=== PATIENT | male | born 1960 | race Caucasian/White ===

== ENCOUNTER 2018-03-10 12:11 | Inpatient (IN) | payer OTHER ==
[2018-03-10 12:51] LABS: ADD MAN DIFF? NO
[2018-03-10 12:53] LABS: WHITE BLOOD COUNT 8.3 10^3/ul (4.8-10.8)
[2018-03-10 12:53] LABS: BASOPHIL # 0.1 10^3/ul (0.0-0.1); BASOPHILS % 0.6 % (0.0-2.0); EOSINOPHILS # 0.1 10^3/ul (0.0-0.5); EOSINOPHILS % 0.6 % (0.0-7.0); HEMATOCRIT 49.1 % (42.0-52.0); HEMOGLOBIN 16.8 g/dl (14.0-18.0); LYMPHOCYTES # 1.6 10^3/ul (0.8-2.9); LYMPHOCYTES % 19.7 % (15.0-51.0); MEAN CORPUSCULAR HGB CONC 34.2 g/dl (32.0-37.0); MEAN CORPUSCULAR VOLUME 84.8 fl (82.0-101.0); MEAN PLATELET VOLUME 10.6 fl (7.4-10.4); MONOCYTE # 0.6 10^3/ul (0.3-0.9); MONOCYTES % 7.4 % (0.0-11.0); NEUTROPHIL # 5.9 10^3/ul (1.6-7.5); NEUTROPHILS % 71.3 % (39.0-77.0); PLATELET COUNT 238 10^3/UL (140-415); RED BLOOD COUNT 5.79 10^6/ul (4.70-6.10); RED CELL DISTRIBUTION WIDTH 12.7 % (11.5-14.5)
[2018-03-10 13:11] LABS: ALANINE AMINOTRANSFERASE 24 IU/L (13-69); ALBUMIN 4.9 g/dl (3.3-4.9); ALBUMIN/GLOBULIN RATIO 1.63; ALKALINE PHOSPHATASE 74 IU/L (42-121); ANION GAP 13 (5-13); ASPARTATE AMINO TRANSFERASE 25 IU/L (15-46); BILIRUBIN,INDIRECT 0.9 mg/dl (0-1.1); BILIRUBIN,TOTAL 0.9 mg/dl (0.2-1.3); BLOOD UREA NITROGEN 16 mg/dl (7-20); CALCIUM 9.9 mg/dl (8.4-10.2); CARBON DIOXIDE 22 mmol/L (21-31); CHLORIDE 107 mmol/L (97-110); CREATININE 1.23 mg/dl (0.61-1.24); Estimated GFR > 60 mL/min (>60); GLUCOSE 108 mg/dl (70-220); POTASSIUM 4.2 mmol/L (3.5-5.1); SODIUM 142 mmol/L (135-144); TOTAL PROTEIN 7.9 g/dl (6.1-8.1)
[2018-03-10 13:23] LABS: B-TYPE NATRIURETIC PEPTIDE 203 PG/ML (0-125); TROPONIN-I < 0.012 ng/ml (0.000-0.120)
[2018-03-10 13:38] LABS: INR 0.88; PT RATIO 0.9
[2018-03-10] MEDS: ASPIRIN 81 MG TAB PO (13:51)
[2018-03-10] MEDS: morphine 2 MG INJ IV (13:51)
[2018-03-10] MEDS: hydrALAzine 20 MG INJ IV (13:51)
[2018-03-10] MEDS ORDERED: ONDANSETRON 4 MG INJ IV (16:30)
[2018-03-10] MEDS ORDERED: ACETAMINOPHEN 325 MG TAB PO (16:30)
[2018-03-10] MEDS ORDERED: NACL 0.9% 3 ML SYG IV (17:00)
[2018-03-10] MEDS ORDERED: NITROGLYCERIN (SL) 0.4 MG TAB SL (17:00)
[2018-03-10] MEDS ORDERED: LABETALOL HCL 20MG INJ IV (17:00)
[2018-03-10 19:02] LABS: CREATINE KINASE 86 IU/L (23-200)
[2018-03-10 19:16] LABS: CK INDEX 1.2; CK-MB 0.99 ng/ml (0.0-2.4); TROPONIN-I < 0.012 ng/ml (0.000-0.120)
[2018-03-10] MEDS: FISH OIL 1,000 MG CAP PO (20:15)
[2018-03-10] MEDS: AMLODIPINE 5 MG TAB PO (20:15)
[2018-03-10] MEDS: ATORVASTATIN 10 MG TAB PO (20:15)
[2018-03-10] MEDS: BENAZEPRIL 40 MG TAB PO (21:00)
[2018-03-10] MEDS ORDERED: BENAZEPRIL 40 MG TAB PO (21:00)
[2018-03-10] MEDS ORDERED: HEPARIN 5,000 UNIT/0.5 ML VIAL (21:30)
[2018-03-10] MEDS: LORAZEPAM 1 MG TAB PO (21:37)
[2018-03-10] MEDS: HEPARIN 5,000 UNIT/1 ML VIAL SC (21:44)
[2018-03-10] MEDS: ONDANSETRON 4 MG INJ IV (21:48)
[2018-03-11 01:16] LABS: CREATINE KINASE 73 IU/L (23-200)
[2018-03-11 01:28] LABS: CK INDEX 1.2; CK-MB 0.88 ng/ml (0.0-2.4); TROPONIN-I < 0.012 ng/ml (0.000-0.120)
[2018-03-11] MEDS: ONDANSETRON 4 MG INJ IV (04:39)
[2018-03-11 05:28] LABS: ADD MAN DIFF? NO
[2018-03-11 05:29] LABS: BASOPHILS % 0.3 % (0.0-2.0); EOSINOPHILS # 0.1 10^3/ul (0.0-0.5); EOSINOPHILS % 1.1 % (0.0-7.0); HEMATOCRIT 49.4 % (42.0-52.0); HEMOGLOBIN 16.9 g/dl (14.0-18.0); LYMPHOCYTES # 2.1 10^3/ul (0.8-2.9); LYMPHOCYTES % 23.5 % (15.0-51.0); MEAN CORPUSCULAR HEMOGLOBIN 29.3 pg (29.0-33.0); MEAN CORPUSCULAR HGB CONC 34.2 g/dl (32.0-37.0); MEAN CORPUSCULAR VOLUME 85.8 fl (82.0-101.0); MEAN PLATELET VOLUME 10.5 fl (7.4-10.4); NEUTROPHIL # 5.6 10^3/ul (1.6-7.5); NEUTROPHILS % 63.9 % (39.0-77.0); PLATELET COUNT 262 10^3/UL (140-415); RED BLOOD COUNT 5.76 10^6/ul (4.70-6.10); RED CELL DISTRIBUTION WIDTH 13.2 % (11.5-14.5)
[2018-03-11 05:29] LABS: WHITE BLOOD COUNT 8.7 10^3/ul (4.8-10.8)
[2018-03-11] MEDS ORDERED: HEPARIN 5,000 UNIT/0.5 ML VIAL ×2 (05:49→13:57)
[2018-03-11 06:00] LABS: CREATINE KINASE 66 IU/L (23-200)
[2018-03-11 06:02] LABS: ALBUMIN/GLOBULIN RATIO 1.95; ANION GAP 12 (5-13); Estimated GFR > 60 mL/min (>60)
[2018-03-11 06:05] LABS: CHOL/HDL RATIO 5.3 RATIO; HDL CHOLESTEROL 42 mg/dl (30-78); LDL CHOLESTEROL,CALCULATED 147 mg/dl; TRIGLYCERIDES 180 mg/dl (0-149)
[2018-03-11 06:05] LABS: CHOLESTEROL 225 mg/dl (100-200)
[2018-03-11 06:10] LABS: CK INDEX 1.1
[2018-03-11 06:13] LABS: TROPONIN-I < 0.012 ng/ml (0.000-0.120)
[2018-03-11] MEDS: LEVOTHYROXINE 50 MCG TAB PO (06:21)
[2018-03-11 06:28] LABS: ALANINE AMINOTRANSFERASE 26 IU/L (13-69); ALBUMIN 4.7 g/dl (3.3-4.9); ALKALINE PHOSPHATASE 67 IU/L (42-121); ASPARTATE AMINO TRANSFERASE 21 IU/L (15-46); BLOOD UREA NITROGEN 19 mg/dl (7-20); CALCIUM 9.9 mg/dl (8.4-10.2); CARBON DIOXIDE 24 mmol/L (21-31); CHLORIDE 107 mmol/L (97-110); CREATININE 1.18 mg/dl (0.61-1.24); GLUCOSE 111 mg/dl (70-220); MAGNESIUM 2.1 mg/dl (1.7-2.5); POTASSIUM 4.2 mmol/L (3.5-5.1); SODIUM 143 mmol/L (135-144); TOTAL PROTEIN 7.1 g/dl (6.1-8.1)
[2018-03-11] MEDS: HEPARIN 5,000 UNIT/1 ML VIAL SC ×2 (06:29→14:12)
[2018-03-11 06:31] LABS: CK-MB 0.74 ng/ml (0.0-2.4)
[2018-03-11 07:38] LABS: FREE T4 (FREE THYROXINE) 0.88 ng/dl (0.64-1.79)
[2018-03-11] MEDS: BENAZEPRIL 40 MG TAB PO (08:13)
[2018-03-11] MEDS: ASPIRIN (EC) 81 MG TAB PO (08:14)
[2018-03-11] MEDS: AMLODIPINE 5 MG TAB PO (08:14)
[2018-03-11] MEDS: FISH OIL 1,000 MG CAP PO (08:14)
[2018-03-11] MEDS ORDERED: CLOPIDOGREL 75 MG TAB PO (09:00)
[2018-03-11] MEDS: ACETAMINOPHEN 325 MG TAB PO (11:16)
[2018-03-11] MEDS: REGADENOSON 0.4 MG/5 ML SYG (13:12)
== END 2018-03-11 17:15 | disposition home or self-care (01) | DRG 305 ==
LOC: E/R 12:11 → TEL 16:03
DX: I16.0 Hypertensive urgency (principal); I25.10 Atherosclerotic heart disease of native coronary artery without angina pectoris; E03.9 Hypothyroidism, unspecified; Z79.82 Long term (current) use of aspirin; E78.5 Hyperlipidemia, unspecified; F41.9 Anxiety disorder, unspecified; G47.00 Insomnia, unspecified; R07.9 Chest pain, unspecified; Z87.891 Personal history of nicotine dependence; Z91.19 Patient's noncompliance with other medical treatment and regimen
CPT/HCPCS: 36415; 70450; 71045; 78452; 80053; 80061; 82550; 82553; 83735; 83880; 84439; 84443; 84484; 85025; 85610; 93005; 93017; 93306; 96374; 99285-25

== ENCOUNTER 2018-04-05 14:25 | Observation (INO) | payer OTHER ==
[2018-04-05] MEDS: ASPIRIN 81 MG TAB PO (15:27)
[2018-04-05] MEDS: NITROGLYCERIN (SL) 0.4 MG TAB SL (15:27)
[2018-04-05] MEDS: NITROGLYCERIN 2% 1 GM OINT PKT TD (15:28)
[2018-04-05 15:38] LABS: ADD MAN DIFF? NO
[2018-04-05] MEDS ORDERED: ATROPINE 1 MG/10 ML SYRINGE (15:40)
[2018-04-05 15:42] LABS: BASOPHILS % 0.4 % (0.0-2.0); EOSINOPHILS % 0.2 % (0.0-7.0); HEMATOCRIT 48.4 % (42.0-52.0); HEMOGLOBIN 16.5 g/dl (14.0-18.0); LYMPHOCYTES # 1.5 10^3/ul (0.8-2.9); LYMPHOCYTES % 17.9 % (15.0-51.0); MEAN CORPUSCULAR HEMOGLOBIN 28.9 pg (29.0-33.0); MEAN CORPUSCULAR HGB CONC 34.1 g/dl (32.0-37.0); MEAN CORPUSCULAR VOLUME 84.8 fl (82.0-101.0); MEAN PLATELET VOLUME 10.7 fl (7.4-10.4); MONOCYTE # 0.6 10^3/ul (0.3-0.9); NEUTROPHILS % 74.3 % (39.0-77.0); PLATELET COUNT 245 10^3/UL (140-415); RED BLOOD COUNT 5.71 10^6/ul (4.70-6.10); RED CELL DISTRIBUTION WIDTH 12.5 % (11.5-14.5)
[2018-04-05 15:42] LABS: WHITE BLOOD COUNT 8.1 10^3/ul (4.8-10.8)
[2018-04-05] MEDS: ATROPINE 0.4 MG INJ IV (15:43)
[2018-04-05] MEDS: SOD CHLORIDE 0.9% 1,000 ML IV (15:57)
[2018-04-05 15:59] LABS: ANION GAP 13 (5-13); BLOOD UREA NITROGEN 14 mg/dl (7-20); CALCIUM 9.6 mg/dl (8.4-10.2); CARBON DIOXIDE 22 mmol/L (21-31); CHLORIDE 104 mmol/L (97-110); CREATININE 0.79 mg/dl (0.61-1.24); Estimated GFR > 60 mL/min (>60); GLUCOSE 115 mg/dl (70-220); POTASSIUM 4.1 mmol/L (3.5-5.1); SODIUM 139 mmol/L (135-144)
[2018-04-05 16:11] LABS: TROPONIN-I < 0.012 ng/ml (0.000-0.120)
[2018-04-05] MEDS: morphine 4 MG/ML VIAL IV (17:46)
[2018-04-05] MEDS: ONDANSETRON 4 MG INJ IV (17:46)
[2018-04-05] MEDS: ACETAMINOPHEN 325 MG TAB PO ×2 (17:49→18:20)
[2018-04-05] MEDS ORDERED: NACL 0.9% 3 ML SYG IV (18:00)
[2018-04-05] MEDS ORDERED: ONDANSETRON 4 MG INJ IV (18:00)
[2018-04-05] MEDS ORDERED: ATROPINE 0.4 MG INJ IV (18:30)
[2018-04-05] MEDS: ATORVASTATIN 20 MG TAB PO ×2 (21:00→21:26)
[2018-04-05 22:35] LABS: CREATINE KINASE 76 IU/L (23-200)
[2018-04-05] MEDS: LORAZEPAM 1 MG TAB PO (22:35)
[2018-04-05 22:53] LABS: CK INDEX 1.1; CK-MB 0.87 ng/ml (0.0-2.4); TROPONIN-I < 0.012 ng/ml (0.000-0.120)
[2018-04-06 03:17] LABS: ADD MAN DIFF? NO
[2018-04-06 03:18] LABS: WHITE BLOOD COUNT 8.6 10^3/ul (4.8-10.8)
[2018-04-06 03:18] LABS: BASOPHILS % 0.3 % (0.0-2.0); EOSINOPHILS # 0.1 10^3/ul (0.0-0.5); EOSINOPHILS % 0.7 % (0.0-7.0); HEMATOCRIT 45.5 % (42.0-52.0); HEMOGLOBIN 15.3 g/dl (14.0-18.0); LYMPHOCYTES # 1.8 10^3/ul (0.8-2.9); LYMPHOCYTES % 21.3 % (15.0-51.0); MEAN CORPUSCULAR HEMOGLOBIN 28.7 pg (29.0-33.0); MEAN CORPUSCULAR HGB CONC 33.6 g/dl (32.0-37.0); MEAN CORPUSCULAR VOLUME 85.2 fl (82.0-101.0); MEAN PLATELET VOLUME 10.4 fl (7.4-10.4); MONOCYTE # 0.8 10^3/ul (0.3-0.9); NEUTROPHIL # 5.9 10^3/ul (1.6-7.5); NEUTROPHILS % 68.6 % (39.0-77.0); PLATELET COUNT 214 10^3/UL (140-415); RED BLOOD COUNT 5.34 10^6/ul (4.70-6.10); RED CELL DISTRIBUTION WIDTH 12.5 % (11.5-14.5)
[2018-04-06 03:39] LABS: CREATINE KINASE 65 IU/L (23-200)
[2018-04-06 03:40] LABS: ANION GAP 13 (5-13); BLOOD UREA NITROGEN 12 mg/dl (7-20); CARBON DIOXIDE 23 mmol/L (21-31); CHLORIDE 107 mmol/L (97-110); CREATININE 0.88 mg/dl (0.61-1.24); Estimated GFR > 60 mL/min (>60); GLUCOSE 113 mg/dl (70-220); SODIUM 143 mmol/L (135-144)
[2018-04-06 03:52] LABS: CK INDEX 1.1; TROPONIN-I < 0.012 ng/ml (0.000-0.120)
[2018-04-06] MEDS: ONDANSETRON 4 MG INJ IV (06:21)
[2018-04-06] MEDS: LEVOTHYROXINE 75 MCG TAB PO (06:21)
[2018-04-06] MEDS: AMLODIPINE 5 MG TAB PO ×2 (08:06→21:00)
[2018-04-06] MEDS: ASPIRIN (EC) 81 MG TAB PO (08:06)
[2018-04-06] MEDS: ENOXAPARIN 40 MG/0.4 ML SYG SC (08:06)
[2018-04-06] MEDS: BENAZEPRIL 40 MG TAB PO (08:15)
[2018-04-06] MEDS: PAROXETINE 20 MG TAB PO (09:46)
[2018-04-06 10:20] LABS: HEMOGLOBIN A1C 5.6 % (0-5.9)
[2018-04-06 10:26] LABS: FREE T4 (FREE THYROXINE) 1.12 ng/dl (0.64-1.79)
[2018-04-06 16:30] LABS: CREATINE KINASE 56 IU/L (23-200)
[2018-04-06 16:43] LABS: CK INDEX 0.9; CK-MB 0.53 ng/ml (0.0-2.4); TROPONIN-I < 0.012 ng/ml (0.000-0.120)
[2018-04-06] MEDS: ATORVASTATIN 20 MG TAB PO (21:00)
[2018-04-06] MEDS: LORAZEPAM 1 MG TAB PO (22:09)
[2018-04-07] MEDS: LEVOTHYROXINE 75 MCG TAB PO (04:38)
[2018-04-07] MEDS: ACETAMINOPHEN 325 MG TAB PO (04:38)
[2018-04-07] MEDS: ASPIRIN (EC) 81 MG TAB PO (09:17)
[2018-04-07] MEDS: PAROXETINE 20 MG TAB PO (09:17)
[2018-04-07] MEDS: AMLODIPINE 5 MG TAB PO (09:17)
[2018-04-07] MEDS: BENAZEPRIL 40 MG TAB PO (09:17)
[2018-04-07] MEDS: ENOXAPARIN 40 MG/0.4 ML SYG SC (09:54)
== END 2018-04-07 12:27 | disposition home or self-care (01) ==
LOC: 6WM 21:13 → E/R 14:25 → 6WM 04-06 17:50 → ICU 17:34
DX: R00.1 Bradycardia, unspecified (principal); I25.10 Atherosclerotic heart disease of native coronary artery without angina pectoris; Z95.5 Presence of coronary angioplasty implant and graft; I10 Essential (primary) hypertension; F41.9 Anxiety disorder, unspecified; R07.9 Chest pain, unspecified; E78.00 Pure hypercholesterolemia, unspecified; E11.9 Type 2 diabetes mellitus without complications; E78.5 Hyperlipidemia, unspecified; I25.2 Old myocardial infarction; E03.9 Hypothyroidism, unspecified; Z79.82 Long term (current) use of aspirin
CPT/HCPCS: 36415; 71045; 80048; 82550; 82553; 83036; 83735; 84439; 84443; 84484; 85025; 87081; 93005; 96374; 99217; 99285-25; G0378

== ENCOUNTER 2018-12-04 02:57 | Emergency (ER) | payer OTHER ==
[2018-12-04 03:52] LABS: ADD MAN DIFF? NO
[2018-12-04 04:03] LABS: BASOPHILS % 0.6 % (0.0-2.0); EOSINOPHILS # 0.2 10^3/ul (0.0-0.5); EOSINOPHILS % 2.4 % (0.0-7.0); HEMATOCRIT 45.6 % (42.0-52.0); HEMOGLOBIN 15.3 g/dl (14.0-18.0); LYMPHOCYTES # 1.3 10^3/ul (0.8-2.9); MEAN CORPUSCULAR HEMOGLOBIN 29.1 pg (29.0-33.0); MEAN CORPUSCULAR HGB CONC 33.6 g/dl (32.0-37.0); MEAN CORPUSCULAR VOLUME 86.7 fl (82.0-101.0); MEAN PLATELET VOLUME 10.3 fl (7.4-10.4); MONOCYTE # 0.8 10^3/ul (0.3-0.9); MONOCYTES % 12.2 % (0.0-11.0); NEUTROPHIL # 4.1 10^3/ul (1.6-7.5); NEUTROPHILS % 63.5 % (39.0-77.0); PLATELET COUNT 230 10^3/UL (140-415); RED BLOOD COUNT 5.26 10^6/ul (4.70-6.10); RED CELL DISTRIBUTION WIDTH 13.2 % (11.5-14.5)
[2018-12-04 04:03] LABS: WHITE BLOOD COUNT 6.4 10^3/ul (4.8-10.8)
[2018-12-04 04:23] LABS: ALANINE AMINOTRANSFERASE 21 IU/L (13-69); ALBUMIN 4.2 g/dl (3.3-4.9); ALBUMIN/GLOBULIN RATIO 1.31; ALKALINE PHOSPHATASE 61 IU/L (42-121); ANION GAP 9 (5-13); ASPARTATE AMINO TRANSFERASE 21 IU/L (15-46); BILIRUBIN,INDIRECT 0.8 mg/dl (0-1.1); BILIRUBIN,TOTAL 0.8 mg/dl (0.2-1.3); BLOOD UREA NITROGEN 18 mg/dl (7-20); CALCIUM 9.2 mg/dl (8.4-10.2); CARBON DIOXIDE 24 mmol/L (21-31); CHLORIDE 109 mmol/L (97-110); CREATININE 0.98 mg/dl (0.61-1.24); Estimated GFR > 60 mL/min (>60); GLUCOSE 115 mg/dl (70-220); LIPASE 148 U/L (23-300); POTASSIUM 3.6 mmol/L (3.5-5.1); SODIUM 142 mmol/L (135-144); TOTAL PROTEIN 7.4 g/dl (6.1-8.1)
[2018-12-04 04:35] LABS: B-TYPE NATRIURETIC PEPTIDE 113 PG/ML (0-125); TROPONIN-I < 0.012 ng/ml (0.000-0.120)
[2018-12-04] MEDS: NITROGLYCERIN 2% 1 GM OINT PKT TD (06:44)
[2018-12-04] MEDS ORDERED: ACETAMINOPHEN 325 MG TAB PO (07:00)
[2018-12-04] MEDS ORDERED: NITROGLYCERIN (SL) 0.4 MG TAB SL (07:00)
[2018-12-04] MEDS ORDERED: ONDANSETRON 4 MG INJ IV ×2 (07:00→07:30)
[2018-12-04] MEDS: ASPIRIN 81 MG TAB PO (07:02)
[2018-12-04] MEDS ORDERED: MINOXIDIL 2.5 MG TAB PO (07:30)
[2018-12-04] MEDS ORDERED: morphine 4 MG/ML VIAL IV (07:30)
[2018-12-04] MEDS ORDERED: INSULIN ASPART [NOVOLOG] 3 ML PEN SC (08:00)
[2018-12-04] MEDS ORDERED: metFORMIN 500 MG TAB PO (08:00)
[2018-12-04] MEDS ORDERED: FISH OIL 1,000 MG CAP PO (09:00)
[2018-12-04] MEDS ORDERED: LORAZEPAM 1 MG TAB PO (09:00)
[2018-12-04] MEDS ORDERED: SERTRALINE 50 MG TAB PO (09:00)
[2018-12-04] MEDS ORDERED: CYCLOBENZAPRINE 10 MG TAB PO (09:00)
[2018-12-04] MEDS ORDERED: GABAPENTIN 300 MG CAP PO (09:00)
[2018-12-04] MEDS ORDERED: PAROXETINE 20 MG TAB PO (09:00)
[2018-12-04] MEDS ORDERED: ASPIRIN (EC) 81 MG TAB PO (09:00)
[2018-12-04] MEDS: AMLODIPINE 5 MG TAB PO (09:09)
[2018-12-04] MEDS: BENAZEPRIL 40 MG TAB PO (09:09)
[2018-12-04] MEDS: PANTOPRAZOLE (EC) 40 MG TAB PO (09:11)
[2018-12-04 09:14] LABS: TROPONIN-I < 0.012 ng/ml (0.000-0.120)
[2018-12-04 10:25] LABS: TROPONIN-I < 0.012 ng/ml (0.000-0.120)
[2018-12-04] MEDS ORDERED: ATORVASTATIN 10 MG TAB PO (21:00)
[2018-12-05] MEDS ORDERED: LEVOTHYROXINE 75 MCG TAB PO (07:00)
== END 2018-12-04 13:36 | disposition left against medical advice (07) ==
LOC: E/R 02:57
DX: R07.9 Chest pain, unspecified (principal); E03.9 Hypothyroidism, unspecified; I25.10 Atherosclerotic heart disease of native coronary artery without angina pectoris; I10 Essential (primary) hypertension; Z79.82 Long term (current) use of aspirin
CPT/HCPCS: 36415; 71045; 80053; 83690; 83880; 84484; 85025; 93005; 93306; 99285-25